=== PATIENT | female | born 1970 | race African-American/Black ===

== ENCOUNTER 2019-04-23 10:31 | Inpatient (IN) | payer OTHER ==
[~2019-04-23] VITALS: Ht 175.3 cm; Wt 84.8 kg
[~2019-04-23 10:31] MED LIST: BECL8.7A5 IH; DSS100 PO; OMEP20 PO
[2019-04-23] MEDS ORDERED: IOVERSOL 350 MG/ML 100 ML VIAL ONE (10:41)
[2019-04-23] MEDS ORDERED: SODIUM CHLORIDE 0.9% 100 ML ONE (10:41)
[2019-04-23] MEDS ORDERED: LORazepam 2 MG/ML VIAL IVP ONE (11:00)
[2019-04-23 11:01] LABS: BASOPHILS % (AUTO) 0.7 % (0.0-2.0); EOSINOPHILS % (AUTO) 0.9 % (1.0-6.0); HEMATOCRIT 39.5 % (36-46); HEMOGLOBIN 12.5 g/dL (12.0-16.0); LYMPHOCYTES # (AUTO) 1.8 K/uL (1.0-4.8); LYMPHOCYTES % (AUTO) 43.3 % (22.0-44.0); MEAN CORPUSCULAR HEMOGLOBIN 26.1 pg (26.0-34.0); MEAN CORPUSCULAR HGB CONC 31.6 G/dL (31.0-37.0); MEAN CORPUSCULAR VOLUME 83 fL (80-100); MONOCYTES # (AUTO) 0.3 K/uL (0.1-1.0); MONOCYTES % (AUTO) 6.3 % (2.0-9.0); NEUTROPHILS % (AUTO) 48.8 % (40.0-70.0); PLATELET COUNT (AUTO) 296 K/uL (150-450); RED BLOOD CELL COUNT(AUTO) 4.77 MIL/uL (4.00-5.20); RED CELL DISTRIBUTION WIDTH 14.9 % (11.5-14.5)
[2019-04-23 11:11] LABS: ANION GAP 4 mmol/L (8-16); CALCIUM, TOTAL 9.5 mg/dL (8.8-10.5); CARBON DIOXIDE 28 mmol/L (22-29); CHLORIDE 103 mmol/L (98-107); CREATININE 1.11 mg/dL (0.60-1.30); GLOMERULAR FILTR. RATE CALC > 60 mL/min (>60); GLUCOSE,RANDOM 95 mg/dL (70-110); POTASSIUM 3.5 mmol/L (3.5-5.1); SODIUM SERUM 135 mmol/L (136-145); UREA NITROGEN, BLOOD 16 mg/dL (7-18)
[2019-04-23 11:13] LABS: PROTHROMBIN TIME 10.5 SEC (9.4-11.6)
[2019-04-23 11:17] LABS: ALANINE AMINOTRANSFERASE 28 U/L (12-78); ALBUMIN 3.6 g/dL (3.4-5.0); ALKALINE PHOSPHATASE 115 U/L (46-116); ASPARTATE AMINOTRANSFERASE 26 U/L (15-37); BILIRUBIN,TOTAL 0.3 mg/dL (0.1-1.0); TOTAL PROTEIN, SERUM 7.3 g/dL (6.4-8.2)
[2019-04-23] MEDS ORDERED: CYCL10 PO (12:05)
[2019-04-23] MEDS ORDERED: CITA-106 PO (12:05)
[2019-04-23] MEDS ORDERED: ASPIRIN 81 MG CHEWABLE TABLET PO ONE ×2 (12:45→13:15)
[2019-04-23] MEDS ORDERED: ACETAMINOPHEN 325 MG TABLET PO PRN ×2 (13:00→13:15)
[2019-04-23] MEDS ORDERED: ONDANSETRON HCL 4 MG/2 ML VIAL IVP PRN ×2 (13:00→13:15)
[2019-04-23] MEDS ORDERED: HYDROCODONE/ACETAMINOPHEN 5-325 MG TABLET PO PRN (13:15)
[2019-04-23] MEDS ORDERED: BISACODYL 10 MG RECTAL RECTAL SUPPOSITORY PR PRN (13:15)
[2019-04-23] MEDS ORDERED: MAGNESIUM HYDROXIDE SUSPENSION 30 ML UDCUP PO PRN (13:15)
[2019-04-23 13:52] LABS: CHOL/HDL RATIO 4.4 (3.9-5.7); CHOLESTEROL 207 mg/dL (131-200); HDL CHOLESTEROL 47 mg/dL (40-60); LDL CHOL (CALC.) 146 mg/dL (0-130); TRIGLYCERIDES 71 mg/dL (15-150)
[2019-04-23 14:30] LABS: GLUCOSE,POINT OF CARE 85 MG/DL (70-110)
[2019-04-23 17:59] VITALS: BP 143/58
[2019-04-23] MEDS: HEPARIN SODIUM,PORCINE 5,000 UNITS/ML VIAL SQ SCH ×2 (19:23→23:34)
[2019-04-23 19:30] VITALS: BP 136/90
[2019-04-23] MEDS: ATORVASTATIN CALCIUM 20 MG TABLET PO SCH (20:52)
[2019-04-23] MEDS: DOCUSATE SODIUM 100 MG CAPSULE PO SCH (20:52)
[2019-04-23] MEDS: MORPHINE SULFATE 2 MG/ML SYRINGE IVP PRN (20:53)
[2019-04-23] MEDS: ZOLPIDEM TARTRATE 5 MG TABLET PO PRN (22:38)
[2019-04-23 23:42] VITALS: BP 118/75
[2019-04-24 06:03] LABS: CHOL/HDL RATIO 4.8 (3.9-5.7); THYROID STIMULATING HORMONE 1.03 uIU/mL (0.36-3.74)
[2019-04-24 07:38] VITALS: BP 111/60
[2019-04-24] MEDS: DOCUSATE SODIUM 100 MG CAPSULE PO SCH ×2 (09:58→19:39)
[2019-04-24] MEDS: PANTOPRAZOLE SODIUM 40 MG DR TABLET PO SCH (09:58)
[2019-04-24] MEDS: HEPARIN SODIUM,PORCINE 5,000 UNITS/ML VIAL SQ SCH ×2 (09:59→16:24)
[2019-04-24] MEDS: MORPHINE SULFATE 2 MG/ML SYRINGE IVP PRN ×2 (10:03→16:28)
[2019-04-24 11:42] VITALS: BP 131/94
[2019-04-24 19:38] VITALS: BP 129/76
[2019-04-24] MEDS: ATORVASTATIN CALCIUM 20 MG TABLET PO SCH (19:39)
[2019-04-25] MEDS ORDERED: IOVERSOL 320 MG/ML 100 ML VIAL ONE (00:03)
[2019-04-25] MEDS ORDERED: SODIUM CHLORIDE 0.9% 100 ML ONE (00:03)
[2019-04-25] MEDS: HEPARIN SODIUM,PORCINE 5,000 UNITS/ML VIAL SQ SCH ×4 (01:23→22:42)
[2019-04-25 04:43] VITALS: BP 127/80
[2019-04-25 08:00] VITALS: BP 138/77
[2019-04-25] MEDS: DOCUSATE SODIUM 100 MG CAPSULE PO SCH ×2 (09:08→20:36)
[2019-04-25] MEDS: PANTOPRAZOLE SODIUM 40 MG DR TABLET PO SCH (09:08)
[2019-04-25] MEDS: MORPHINE SULFATE 2 MG/ML SYRINGE IVP PRN ×2 (10:46→20:36)
[2019-04-25 11:19] VITALS: BP 137/92
[2019-04-25 11:57] LABS: GLUCOMETER DEV NAME(LOC) 5S.1; GLUCOSE,POINT OF CARE 93 MG/DL (70-110)
[2019-04-25 15:50] VITALS: BP 118/69
[2019-04-25 19:11] VITALS: BP 129/80
[2019-04-25] MEDS: ATORVASTATIN CALCIUM 20 MG TABLET PO SCH (20:36)
[2019-04-25] MEDS: ZOLPIDEM TARTRATE 5 MG TABLET PO PRN (22:42)
[2019-04-25 23:15] VITALS: BP 128/76
[2019-04-26 04:58] VITALS: BP 115/72
[2019-04-26 07:30] VITALS: BP 104/70
[2019-04-26] MEDS: HEPARIN SODIUM,PORCINE 5,000 UNITS/ML VIAL SQ SCH (08:54)
[2019-04-26] MEDS: DOCUSATE SODIUM 100 MG CAPSULE PO SCH (08:54)
[2019-04-26] MEDS: PANTOPRAZOLE SODIUM 40 MG DR TABLET PO SCH (08:54)
[2019-04-26] MEDS: MORPHINE SULFATE 2 MG/ML SYRINGE IVP PRN (09:00)
[2019-04-26 11:25] VITALS: BP 130/82
[2019-04-26] MEDS ORDERED: ZOLP5 PO (14:40)
[2019-04-26] MEDS ORDERED: ATOR20TA86 PO (14:41)
[2019-04-26] MEDS ORDERED: ASPI81TA39 PO (14:42)
== END 2019-04-26 15:05 | disposition home or self-care (01) | DRG 47 ==
LOC: EMS 10:32 → 5S 13:23
PROVIDERS: ADMIT Internal Medicine; ATTEND Internal Medicine
DX: G45.9 Transient cerebral ischemic attack, unspecified (principal); I50.9 Heart failure, unspecified; J44.9 Chronic obstructive pulmonary disease, unspecified; M19.90 Unspecified osteoarthritis, unspecified site; Z90.710 Acquired absence of both cervix and uterus; Z87.11 Personal history of peptic ulcer disease; Z87.440 Personal history of urinary (tract) infections; Z83.3 Family history of diabetes mellitus; Z82.49 Family history of ischemic heart disease and other diseases of the circulatory system
CPT/HCPCS: 70496; 70551; 82948; 84443; 92610; 93005; 93306; 93880; 96374; 99291; J1644; J2060; J2270; J2405; J7050

== ENCOUNTER 2020-04-27 13:31 | Emergency (ER) | payer OTHER ==
[~2020-04-27] VITALS: Ht 180.3 cm; Wt 100.0 kg
[~2020-04-27 13:31] MED LIST changes: +ASPI81TA39 PO; +ATOR20TA86 PO; -BECL8.7A5 IH; +CITA-144 PO; +CYCL10 PO; -DSS100 PO; -OMEP20 PO; +ZOLP-280 PO
[2020-04-27 15:48] LABS: CORRECTED WHITE BLOOD COUNT 4.5 K/uL (4.5-11.0); MEAN CORPUSCULAR HEMOGLOBIN 25.7 pg (26.0-34.0); MEAN CORPUSCULAR HGB CONC 31.6 G/dL (31.0-37.0); MEAN CORPUSCULAR VOLUME 81 fL (80-100); PLATELET COUNT (AUTO) 313 K/uL (150-450); RED BLOOD CELL COUNT(AUTO) 5.04 MIL/uL (4.00-5.20); RED CELL DISTRIBUTION WIDTH 15.3 % (11.5-14.5)
[2020-04-27 15:49] LABS: BASOPHILS % (AUTO) 0.7 % (0.0-2.0); EOSINOPHILS % (AUTO) 1.6 % (1.0-6.0); LYMPHOCYTES % (AUTO) 45.6 % (22.0-44.0); MONOCYTES # (AUTO) 0.3 K/uL (0.1-1.0); MONOCYTES % (AUTO) 5.6 % (2.0-9.0); NEUTROPHILS # (AUTO) 2.1 K/uL (1.8-7.7); NEUTROPHILS % (AUTO) 46.5 % (40.0-70.0)
[2020-04-27 15:52] LABS: PROTHROMBIN TIME 10.3 SEC (9.4-11.6)
[2020-04-27 15:58] VITALS: BP 118/89
[2020-04-27 15:58] LABS: B-TYPE NATRIURETIC PEPTIDE 22 pg/mL (0-100)
[2020-04-27 16:10] LABS: ANION GAP 11 mmol/L (8-16); CALCIUM, TOTAL 9.7 mg/dL (8.8-10.5); CARBON DIOXIDE 25 mmol/L (22-29); CHLORIDE 103 mmol/L (98-107); CREATININE 1.08 mg/dL (0.60-1.30); GLOMERULAR FILTR. RATE CALC > 60 mL/min (>60); GLUCOSE,RANDOM 82 mg/dL (70-110); SODIUM SERUM 139 mmol/L (136-145); UREA NITROGEN, BLOOD 14 mg/dL (7-18)
[2020-04-27 16:41] LABS: ALANINE AMINOTRANSFERASE 40 U/L (12-78); ALKALINE PHOSPHATASE 97 U/L (46-116); ASPARTATE AMINOTRANSFERASE 27 U/L (15-37); BILIRUBIN,TOTAL 0.3 mg/dL (0.1-1.0); CREATINE KINASE, TOTAL ONLY 323 U/L (26-192); TOTAL PROTEIN, SERUM 7.7 g/dL (6.4-8.2)
[2020-04-27 16:42] LABS: ALBUMIN 3.8 g/dL (3.4-5.0); LIPASE 145 U/L (73-393)
== END 2020-04-27 16:35 | disposition home or self-care (01) ==
LOC: EMS 13:35
DX: K64.4 Residual hemorrhoidal skin tags (principal); I50.9 Heart failure, unspecified; J44.9 Chronic obstructive pulmonary disease, unspecified; Z79.82 Long term (current) use of aspirin; Z79.899 Other long term (current) drug therapy
CPT/HCPCS: 36415-L1; 36415-TC; 71045-TC

== ENCOUNTER → 2021-02-14 | Emergency (ER) | payer OTHER ==
[~2021-02-14] VITALS: Ht 172.7 cm; Wt 81.8 kg
[~2021-02-14] MED LIST changes: +AMLO5TAB66 PO; +ASPI-1522 PO; +MORPHINE SULFATE 4 MG/ML SYRINGE IVP ONE
[2021-02-14 15:58] LABS: BASOPHILS % (AUTO) 0.8 % (0.0-2.0); EOSINOPHILS % (AUTO) 0.3 % (1.0-6.0); HEMATOCRIT 40.6 % (36-46); HEMOGLOBIN 13.2 g/dL (12.0-16.0); LYMPHOCYTES # (AUTO) 1.5 K/uL (1.0-4.8); LYMPHOCYTES % (AUTO) 26.2 % (22.0-44.0); MEAN CORPUSCULAR HEMOGLOBIN 26.7 pg (26.0-34.0); MEAN CORPUSCULAR HGB CONC 32.5 G/dL (31.0-37.0); MEAN CORPUSCULAR VOLUME 82 fL (80-100); MONOCYTES # (AUTO) 0.3 K/uL (0.1-1.0); MONOCYTES % (AUTO) 5.3 % (2.0-9.0); NEUTROPHILS # (AUTO) 3.9 K/uL (1.8-7.7); NEUTROPHILS % (AUTO) 67.4 % (40.0-70.0); PLATELET COUNT (AUTO) 274 K/uL (150-450); RED BLOOD CELL COUNT(AUTO) 4.95 MIL/uL (4.00-5.20); RED CELL DISTRIBUTION WIDTH 14.8 % (11.5-14.5)
[2021-02-14 16:31] LABS: ANION GAP 9 mmol/L (8-16); CALCIUM, TOTAL 9.7 mg/dL (8.8-10.5); CARBON DIOXIDE 28 mmol/L (22-29); CHLORIDE 103 mmol/L (98-107); CREATININE 1.09 mg/dL (0.60-1.30); GLOMERULAR FILTR. RATE CALC > 60 mL/min (>60); GLUCOSE,RANDOM 86 mg/dL (70-110); POTASSIUM 3.8 mmol/L (3.5-5.1); SODIUM SERUM 140 mmol/L (136-145); UREA NITROGEN, BLOOD 12 mg/dL (7-18)
[2021-02-14 16:35] LABS: SALICYLATE < 2.8 mg/dL (2.8-20.0)
[2021-02-14 16:36] LABS: ALANINE AMINOTRANSFERASE 25 U/L (12-78); ALKALINE PHOSPHATASE 96 U/L (46-116); ASPARTATE AMINOTRANSFERASE 21 U/L (15-37); BILIRUBIN,TOTAL 0.3 mg/dL (0.1-1.0); TOTAL PROTEIN, SERUM 8.3 g/dL (6.4-8.2)
[2021-02-14 16:55] LABS: BILIRUBIN,URINE NEGATIVE (NEGATIVE); GLUCOSE, URINE (UA) NEGATIVE (NEGATIVE); KETONES,URINE NEGATIVE (NEGATIVE); LEUKOCYTE ESTERASE ,URINE TRACE (NEGATIVE); NITRATE,URINE NEGATIVE (NEGATIVE); OCCULT BLOOD,URINE LARGE (NEGATIVE); PH,URINE 6.5 (5.0-8.0); PROTEIN,URINE SEE CONFIRM (NEGATIVE); UROBILINOGEN,URINE 0.2 mg/dL (<=1.0)
[2021-02-14 17:07] LABS: APPEARANCE,URINE CLOUDY (CLEAR); BACTERIA,URINE None Seen /HPF (None Seen); RBC,URINE Full Field /HPF (0-2); SULFOSALICYLIC ACID,URINE 4+ (Negative); WBC,URINE None Seen /HPF (0-5)
[2021-02-14 17:50] VITALS: BP 134/90
== END | disposition home or self-care (01) ==
LOC: EMS 12:48
DX: K64.8 Other hemorrhoids (principal); I50.9 Heart failure, unspecified; J45.909 Unspecified asthma, uncomplicated; F12.90 Cannabis use, unspecified, uncomplicated; Z20.822 Contact with and (suspected) exposure to COVID-19
CPT/HCPCS: 36415; 80053; 81001; 85025; 93005; 96374; 99284; G0480; J2270; U0003; 81002; 99285

== ENCOUNTER 2023-11-09 19:36 | Inpatient (IN) | payer OTHER ==
[~2023-11-09] VITALS: Ht 167.6 cm; Wt 82.4 kg
[~2023-11-09 19:36] MED LIST changes: -ASPI81TA39 PO; +ATOR20TA PO; -ATOR20TA86 PO; +CYCL-448 PO; -CYCL10 PO; -MORPHINE SULFATE 4 MG/ML SYRINGE IVP ONE
[2023-11-09 20:32] LABS: BASOPHILS % (AUTO) 0.8 % (0.0-2.0); EOSINOPHILS % (AUTO) 2.7 % (1.0-6.0); HEMATOCRIT 38.2 % (36-46); HEMOGLOBIN 12.2 g/dL (12.0-16.0); LYMPHOCYTES # (AUTO) 4.3 K/uL (1.0-4.8); LYMPHOCYTES % (AUTO) 68.2 % (22.0-44.0); MEAN CORPUSCULAR HEMOGLOBIN 26.6 pg (26.0-34.0); MEAN CORPUSCULAR VOLUME 83 fL (80-100); MONOCYTES # (AUTO) 0.4 K/uL (0.1-1.0); MONOCYTES % (AUTO) 6.6 % (2.0-9.0); NEUTROPHILS # (AUTO) 1.4 K/uL (1.8-7.7); NEUTROPHILS % (AUTO) 21.7 % (40.0-70.0); PLATELET COUNT (AUTO) 302 K/uL (150-450); RED BLOOD CELL COUNT(AUTO) 4.59 MIL/uL (4.00-5.20); RED CELL DISTRIBUTION WIDTH 14.8 % (11.5-14.5); WHITE BLOOD COUNT (AUTO) 6.4 K/uL (4.5-11.0)
[2023-11-09 20:32] LABS: ALBUMIN 3.4 g/dL (3.4-5.0); BILIRUBIN,TOTAL 0.2 mg/dL (0.1-1.0); CALCIUM, TOTAL 9.5 mg/dL (8.8-10.5); CREATININE 1.3 mg/dL (0.60-1.30); POTASSIUM 3.5 mmol/L (3.5-5.1); PROTHROMBIN TIME 10.6 SEC (9.4-11.6); TOTAL PROTEIN, SERUM 7.3 g/dL (6.4-8.2); TROPONIN I-HIGH SENSITIVITY 6 ng/L (<51)
[2023-11-09] MEDS: ASPIRIN 81 MG CHEWABLE TABLET PO ONE (21:06)
[2023-11-09] MEDS: OxyCODONE HCL/ACETAMINOPHEN 5-325 MG TABLET PO ONE (21:06)
[2023-11-09] MEDS: ONDANSETRON HCL 4 MG/2 ML VIAL IVP ONE (21:22)
[2023-11-09] MEDS ORDERED: ACETAMINOPHEN 325 MG TABLET PO PRN (22:00)
[2023-11-09] MEDS ORDERED: ZOLPIDEM TARTRATE 5 MG TABLET PO PRN (22:00)
[2023-11-09] MEDS ORDERED: MAGNESIUM HYDROXIDE SUSPENSION 30 ML UDCUP PO PRN (22:00)
[2023-11-09] MEDS ORDERED: BISACODYL 10 MG RECTAL RECTAL SUPPOSITORY PR PRN (22:00)
[2023-11-09] MEDS ORDERED: HYDROCODONE/ACETAMINOPHEN 5-325 MG TABLET PO PRN (22:00)
[2023-11-09 22:25] LABS: COVID AG,FIA SOURCE NASAL SWAB
[2023-11-09 22:48] LABS: SARS-COV2 (COVID) ANTIGEN,FIA Negative (Negative)
[2023-11-09] MEDS: HEPARIN SODIUM,PORCINE 5,000 UNITS/ML VIAL SQ SCH (23:59)
[2023-11-10 05:25] VITALS: BP 130/82; PULSE 61; RESP 18; TEMP 97.9
[2023-11-10 08:24] VITALS: BP 133/93; PULSE 75; RESP 18; TEMP 98.2
[2023-11-10] MEDS: CITALOPRAM HYDROBROMIDE 20 MG TABLET PO SCH (08:49)
[2023-11-10] MEDS: DOCUSATE SODIUM 100 MG CAPSULE PO SCH (08:49)
[2023-11-10] MEDS: PANTOPRAZOLE SODIUM 40 MG DR TABLET PO SCH (08:49)
[2023-11-10] MEDS: CYCLOBENZAPRINE HCL 10 MG TABLET PO SCH (08:50)
[2023-11-10] MEDS: ASPIRIN 81 MG DR TABLET PO SCH (08:50)
[2023-11-10] MEDS: AmLODIPine BESYLATE 5 MG TABLET PO SCH (08:50)
[2023-11-10 19:28] VITALS: BP 130/76; PULSE 76; RESP 19; TEMP 98.4
[2023-11-10] MEDS: ZOLPIDEM TARTRATE 5 MG TABLET PO SCH (20:54)
[2023-11-10] MEDS: ATORVASTATIN CALCIUM 20 MG TABLET PO SCH (20:54)
[2023-11-10 23:31] LABS: APPEARANCE,URINE CLEAR (CLEAR); BILIRUBIN,URINE NEGATIVE (NEGATIVE); COLOR,URINE LIGHT YELLOW (YELLOW); GLUCOSE, URINE (UA) NEGATIVE (NEGATIVE); KETONES,URINE NEGATIVE (NEGATIVE); LEUKOCYTE ESTERASE ,URINE NEGATIVE (NEGATIVE); NITRATE,URINE NEGATIVE (NEGATIVE); OCCULT BLOOD,URINE NEGATIVE (NEGATIVE); PROTEIN,URINE NEGATIVE (NEGATIVE); SPECIFIC GRAVITIY, URINE 1.039 (1.003-1.030); UROBILINOGEN,URINE <=1.0 mg/dL (<=1.0)
[2023-11-10 23:37] LABS: ALCOHOL, URINE DRUG SCREEN NEGATIVE (NEGATIVE); AMPHET/METH SCREEN,URINE NEGATIVE (NEGATIVE); BARBITURATE SCREEN, URINE NEGATIVE (NEGATIVE); BENZODIAZEPINES SCREEN,URINE NEGATIVE (NEGATIVE); CANNABINOID SCREEN,URINE POSITIVE (NEGATIVE); COCAINE SCREEN,URINE NEGATIVE (NEGATIVE); METHADONE SCREEN, URINE NEGATIVE (NEGATIVE); OPIATE SCREEN,URINE POSITIVE (NEGATIVE); PHENCYCLIDINE SCREEN,URINE NEGATIVE (NEGATIVE)
[2023-11-10 23:47] LABS: BACTERIA,URINE None Seen /HPF (None Seen); RBC,URINE None Seen /HPF (0-2); SQUAMOUS EPITHELIAL CELL,UR None Seen /LPF (None Seen); WBC,URINE None Seen /HPF (0-5)
[2023-11-11 00:54] VITALS: BP 129/71; PULSE 65; RESP 19; TEMP 98
[2023-11-11 05:59] VITALS: BP 105/70; PULSE 71; RESP 17; TEMP 98
[2023-11-11 08:54] LABS: CHOL/HDL RATIO 3.5 (3.9-5.7)
[2023-11-11 09:22] VITALS: BP 140/83; PULSE 68; RESP 20; TEMP 98.1
[2023-11-11 11:35] VITALS: BP 123/90; PULSE 76; RESP 19; TEMP 98
[2023-11-11] MEDS: MORPHINE SULFATE 2 MG/ML SYRINGE IVP PRN (13:32)
[2023-11-11] MEDS ORDERED: ATOR40TA28 PO (14:30)
[2023-11-11] MEDS ORDERED: CLOP75TA32 PO (14:31)
[2023-11-11] MEDS ORDERED: LISI5TAB21 PO (14:31)
[2023-11-11] MEDS ORDERED: DOCU100C33 PO (14:31)
[2023-11-11 15:41] VITALS: BP 130/88; PULSE 78; RESP 18; TEMP 98.2
[2023-11-11 19:30] VITALS: BP 130/89; PULSE 80; RESP 18; TEMP 98.2
[2023-11-12 05:40] VITALS: BP 110/66; PULSE 74; RESP 18; TEMP 98.6
[2023-11-12 08:37] VITALS: BP 106/75; PULSE 72; RESP 18; TEMP 98
[2023-11-12] MEDS: ONDANSETRON HCL 4 MG/2 ML VIAL IVP PRN (09:19)
[2023-11-12 11:53] VITALS: BP_SYST 138; BP_DIAS 72; BP_DIAS 85; PULSE 75
[2023-11-12 13:01] LABS: GLUCOMETER DEV NAME(LOC) 6N.2B; GLUCOSE,POINT OF CARE 92 MG/DL (70-110)
[2023-11-12 15:52] VITALS: BP 111/70; PULSE 84; RESP 20; TEMP 98.8
[2023-11-12] MEDS ORDERED: TOPIRAMATE 25 MG TABLET PO PRN (16:15)
[2023-11-12 19:28] VITALS: BP 110/77; PULSE 88; RESP 20; TEMP 98.6
[2023-11-13 04:39] VITALS: BP 96/68; PULSE 73; RESP 20; TEMP 97.8
[2023-11-13 06:32] VITALS: BP 104/62
[2023-11-13 08:14] VITALS: BP 113/71; PULSE 68; RESP 18; TEMP 97.7
[2023-11-13 08:56] VITALS: BP 126/77; PULSE 81; RESP 20; TEMP 98.7
[2023-11-13 18:04] VITALS: BP 107/72; PULSE 78; RESP 18; TEMP 98.2
[2023-11-13 19:35] VITALS: BP 118/78; PULSE 83; RESP 18; TEMP 98
[2023-11-14 05:09] VITALS: BP 102/65; PULSE 75; RESP 18; TEMP 98
[2023-11-14 08:44] VITALS: BP 130/87; PULSE 71; RESP 18; TEMP 97.7
[2023-11-14 15:30] VITALS: BP 131/82; PULSE 88; RESP 18; TEMP 98.3
== END 2023-11-14 16:12 | DRG 47 ==
LOC: EMS 19:39 → 5S 22:09 → 6S 11-11 12:00
PROVIDERS: ADMIT Internal Medicine; ATTEND Internal Medicine
DX: G45.9 Transient cerebral ischemic attack, unspecified (principal); G92.9 Unspecified toxic encephalopathy; I69.354 Hemiplegia and hemiparesis following cerebral infarction affecting left non-dominant side; R53.1 Weakness; I11.0 Hypertensive heart disease with heart failure; M41.9 Scoliosis, unspecified; G89.29 Other chronic pain; G43.009 Migraine without aura, not intractable, without status migrainosus; Z20.822 Contact with and (suspected) exposure to COVID-19; I50.9 Heart failure, unspecified; J44.9 Chronic obstructive pulmonary disease, unspecified; R29.704 NIHSS score 4; Z90.710 Acquired absence of both cervix and uterus; Z98.891 History of uterine scar from previous surgery; Z79.82 Long term (current) use of aspirin; Z79.899 Other long term (current) drug therapy; I69.328 Other speech and language deficits following cerebral infarction; Z87.11 Personal history of peptic ulcer disease; Z87.440 Personal history of urinary (tract) infections
CPT/HCPCS: 70450; 70496; 70498; 70551; 71045; 80053; 80061; 80307; 81001; 82948; 82962; 84484; 85025; 85610; 85730; 86850; 86900; 86901; 93005; 93306; 97116; 97163; 97530; 99291; J1644; J2270; J2405; 36415-L1; 36415-TC